=== PATIENT | female | born 1965 | race Caucasian/White ===

== ENCOUNTER → 2017-09-04 | Outpatient (CLI) | payer BC ==
--- NOTE | 2017-09-04 15:05 | MAMMOGRAPHY REPORT ---
BILATERAL DIGITAL DIAGNOSTIC MAMMOGRAM TOMOSYNTHESIS WITH CAD AND TARGETED RIGHT ULTRASOUND: 09/04/2017 CLINICAL HISTORY: 52-year-old woman presents with episodes of burning pain in the right breast radiat ing in the retroareolar plane. No palpable mass, skin changes or nipple discharge. Also due for robert ateral screening mammography. TECHNIQUE: Bilateral breast tomosynthesis in addition to standard 2D mammography was performed. Curre nt study was also evaluated with a Computer Aided Detection (CAD) system. COMPARISON: Comparison is made to exams dated: 01/14/2015 mammogram, 07/25/2013 mammogram, 10/06/2011 [facility], 08/12/2008, and 07/19/2007. BREAST COMPOSITION: The tissue of both breasts is heterogeneously dense, which may obscure small mas ses. FINDINGS: The glandular pattern is similar to prior mammograms. No obvious new masses, new suspiciou s calcifications, asymmetries or areas of architectural distortion are identified. Benign appearing lymph nodes project over each pectoralis muscle on the MLO views. No focal skin thickening appreciat ed. Targeted ultrasound was performed in the area of pain pointed out by the patient, in the periareolar and retroareolar right breast. Incidentally seen in the 2:00 periareolar right breast is a multilobu lated, partially circumscribed, parallel oriented solid appearing mass measuring approximately 10.4 x 5.2 x 10.2 mm. In retrospect, a possible lobulation is seen on cc tomosynthesis slice 27 in the med ial, middle one third of the right breast. When comparing this appearance to prior mammograms, it do es not appear significantly changed and appears somewhat similar to the 2012 exam, suggesting the tejas id mass could represent a benign fibroadenoma and is simply better visualized given the tomosynthesis imaging. Nevertheless given the solid nature, definitive characterization with an ultrasound guided core biopsy is recommended. Additional ultrasound throughout the remainder of the periareolar and retroareolar right breast demon strates no other suspicious solid or cystic mass. No focal skin thickening or drainable fluid collec tion. It is unclear if the mass identified in the 2:00 periareolar region is contributing to the abn ormal sensation/burning pain described by the patient. IMPRESSION: ACR BI-RADS CATEGORY 4: SUSPICIOUS, TARGETED ULTRASOUND ACR BI-RADS CATEGORY 4: SUSPICIO US 1. Ultrasound-guided core biopsy is recommended for a solid, multilobulated 10.4 mm mass in the 2:00 periareolar right breast. It is unclear if this is the cause of the patient's symptoms or possibly contributing to the patient's symptoms. Nevertheless, definitive characterization with tissue sampli ng is needed. 2. Otherwise stable mammographic appearance of the breasts, without definite mammographic evidence o f malignancy. Continued clinical follow-up is recommended for the patient's right breast pain. Mine ral supplements and NSAIDs are recommended. These results and recommendations were discussed with the patient at the time of the exam. She tenta tively scheduled the right breast biopsy prior to leaving our department. Approximately 10% of breast cancers are not detected with mammography. A negative mammographic report should not delay biopsy if a clinically suggestive mass is present. Paige Oglesby M.D. ay/:09/04/2017 11:03:49 Assistant Auto Center Manager: Fawn STEVEN(Esther)(Trish), [facility] letter sent: Abnormal 4/5 BI-RADS Code: ACR BI-RADS Category 4: Suspicious Ultrasound BI-RADS: ACR BI-RADS Category 4: Suspici ous
== END | disposition home or self-care (01) ==
LOC: C.MAMM 09:37
PROVIDERS: ATTEND Family Medicine
DX: N63.10 Unspecified lump in the right breast, unspecified quadrant (principal); N64.4 Mastodynia

== ENCOUNTER → 2017-09-12 | Outpatient (CLI) | payer BC ==
--- NOTE | 2017-09-12 09:31 | Discharge Instructions ---
Discharge Instructions Procedure Procedure Date: Sep 12, 2017. Reason for visit: Right Mass. Discharge Discharge Date: Sep 12, 2017. Discharge Diagnosis: post right breast ultrasound guided core biopsy Instructions Activity Recommendations: Additional Limitations (see below) Return to School/Work: no limitations Recommended Home Diet: No Limitations Provider Instructions: ACTIVITY RECOMMENDATIONS: * No lifting, pushing, pulling or exercising the affected side for three days. RETURN TO SCHOOL/WORK: * You may return to work/school after the procedure, but do not perform any strenuous activities for 24 to 48 hours. MEDICATIONS: * Tylenol (two 325 mg) every four to six hours if needed for mild pain (if not allergic to Tylenol). DIET: * Resume previous diet. SPECIAL CARE INSTRUCTIONS: * Keep biopsy site dry for 24 hours. May shower after 24 hours, but do not soak (bathe) incision. * May remove Tegaderm (plastic patch) tomorrow AFTER showering. * Leave the steri-strips on for one week. Allow the steri-strips to fall off by themselves. If not off after one week, you may remove them. You may place a Bandaid crosswise over the strips, if desired. * Apply ice 10 minutes on and 10 minutes off as needed. * Wear a bra at bedtime to sleep more comfortably for 2-3 days. * Your referring physician should have the results after approximately 5 to 7 business days. * Call for unusual bleeding, fever, drainage, etc or if you have any questions call [phone] during normal business hours or after hours call Dr Oglesby, . FOLLOW UP VISIT: Follow-up with Referring Physician as scheduled. Allergies Uncoded Allergies: N (Allergy, Unknown, 09/12/02) NKA (Allergy, Unknown, 09/12/02) Osmani Monroe Recommendations: Call your doctor if: * Temperature above 101 degrees * Pain not relieved by pain medicine ordered * There is increased drainage or redness from any incision * You have any unanswered questions or concerns. Your Doctors Instructions noted above were prepared by provider Paige Oglesby. Patient Signature Section: Patient Instructions Signature Page Mary Zarate Patient (or Guardian) Signature/Date: I have read and understand the instructions given to me by my caregivers. Caregiver/RN/Doctor Signature/Date: The above-named patient and/or guardian has received patient instructions on this date. + Original Patient Signature Page (only) stays with chart. Please make copy for patient.
--- NOTE | 2017-09-12 12:56 | MAMMOGRAPHY REPORT ---
UNILATERAL RIGHT DIGITAL DIAGNOSTIC MAMMOGRAM TOMOSYNTHESIS: 09/12/2017 CLINICAL HISTORY: Status post ultrasound guided core biopsy of a lobulated solid mass in the 2:00 per iareolar right breast. Please refer to the report from right breast ultrasound guided core biopsy performed at the same time for full detail. IMPRESSION: POST PROCEDURE IMAGING FOR MARKER PLACEMENT Please refer to the report from right breast ultrasound guided core biopsy performed at the same time for full detail. Approximately 10% of breast cancers are not detected with mammography. A negative mammographic report should not delay biopsy if a clinically suggestive mass is present. Paige Oglesby M.D. ay/:09/12/2017 09:30:04 Aircraft Cylinder Mechanic: Grace STEVEN(R)(M), [facility] BI-RADS Code: Post Procedure Imaging For Marker Placement
--- NOTE | 2017-09-12 12:56 | MAMMOGRAPHY REPORT ---
ULTRASOUND GUIDED BIOPSY RIGHT BREAST: 09/12/2017 CLINICAL HISTORY: Indeterminate lobulated 10.4 mm mass in the 2:00 periareolar right breast. Patient presents for ultrasound-guided core biopsy. She initially presented with an abnormal sensation in t he right breast and it is unclear if this could be the cause or was incidentally identified. COMPARISON: Comparison is made to exams dated: 09/04/2017 ultrasound, 09/04/2017 mammogram, 01/14/2015 ma mmogram, 07/25/2013 mammogram, 10/06/2011 mammogram - [facility], and 08/12/2008. PATIENT CONSENT: The procedure, risks and benefits were discussed with the patient and informed conse nt was obtained both verbally and in writing. Specific risks to this procedure include: bleeding, in fection, puncture of adjacent structure, nontarget biopsy, sampling error, pain, metal allergy and me dication reaction. PROCEDURE DESCRIPTION: A time out was performed and the right breast was agreed as the site of biopsy . The skin was prepped and draped in the usual sterile fashion. The solid lobulated 10.4 mm mass in t he 2:00 periareolar right breast was chosen as the target for biopsy. Subcutaneous and intraparenchym al 1% buffered lidocaine, with and without epinephrine, was administered as local anesthesia. A skin incision was made. Through the incision, 5 samples were taken with a 14 gauge Achieve biopsy device. A ribbon shaped metallic marker was placed at the biopsy site. Hemostasis was achieved after manual compression. The patient tolerated the procedure well and there was no immediate complication. The s amples were sent to the pathology department in an appropriately labeled container. Postprocedure right CC and ML tomosynthesis images were obtained. There is a new ribbon-shaped biops y marker clip in the 2:00 middle one third of the right breast, aligning with a partially circumscrib ed and obscured mammographic mass. Pending pathology results, continued clinical follow-up is recomm ended to assess if the patient remains symptomatic and if this biopsied mass could possibly be a caus e of her symptoms. IMPRESSION: ULTRASOUND GUIDED BIOPSY Status post ultrasound-guided core biopsy of an indeterminate solid lobulated 10.4 mm mass in the 2:0 0 right breast, with biopsy marker placed at the site. The patient will receive notification of the biopsy results from her referring physician. Paige Oglesby M.D. ay/:09/12/2017 12:27:40 Scheduling Coordinator: Grace JULES)(M), [facility]
== END | disposition home or self-care (01) ==
LOC: C.MAMM 08:26
PROVIDERS: ATTEND Family Medicine
DX: N63.10 Unspecified lump in the right breast, unspecified quadrant (principal); D24.1 Benign neoplasm of right breast

== ENCOUNTER 2018-03-04 18:33 | Emergency (ER) | payer BC ==
[~2018-03-04] VITALS: Ht 162.6 cm; Wt 76.9 kg
[2018-03-04 18:36] VITALS: TEMP 36.8; Ht 162.6 cm; Wt 76.9 kg
[2018-03-04] MEDS ORDERED: [UNRECOGNIZED DRUG - OTHER] PO ×2 (18:44)
[2018-03-04] MEDS ORDERED: DICL50TA3 PO (18:44)
[2018-03-04] MEDS ORDERED: IBUP-1050 PO (18:46)
[2018-03-04] MEDS ORDERED: KETOROLAC TROMETHAMINE 60 MG/2 ML VIAL IM STA (18:48)
[2018-03-04] MEDS ORDERED: CYCLOBENZAPRINE HCL 10 MG TAB PO STA (18:48)
[2018-03-04] MEDS ORDERED: HYDROCODONE/ACETAMIN 5/325MG TAB PO STA (18:48)
[2018-03-04] MEDS ORDERED: CYCL10TA6 PO (18:56)
[2018-03-04] MEDS ORDERED: HYDR-5688 PO (18:56)
[2018-03-04] MEDS ORDERED: FLEXERIL HOME PACK 10 MG VIAL PO ONE (19:00)
[2018-03-04] MEDS ORDERED: NORCO 5/325MG HOME PACK PO ONE (19:00)
--- NOTE | 2018-03-04 19:43 | EMERGENCY ROOM VISIT NOTE ---
ED Visit Note First contact with patient: 18:39 CHIEF COMPLAINT: Low back pain HISTORY OF PRESENT ILLNESS: This 52-year-old female presents to ER with chief complaint of low back pain. 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 Since that time she is constant pain in the lower back which she describes as aching and spasms. She states she is unable to stand up straight due to the pain. She states she cannot twist her back. She took ibuprofen 400 mg without any relief of the pain. The patient denies any history of chronic back pain or back surgery. The patient denies any pain radiating down her legs or any numbness and tingling. The patient denies a loss of bowel or bladder control or any saddle anesthesia. REVIEW OF SYSTEMS: 6 system review was performed and was negative unless stated otherwise in history of present illness. PMH: The patient is healthy; partial thyroidectomy, right shoulder surgery, tubal ligation SOCIAL HISTORY: Patient lives with her . The patient denies any tobacco or alcohol use. PHYSICAL EXAM: Vital Signs were reviewed: Reviewed Nurse's notes and agree. GENERAL: 52-year-old white female appears in no acute distress. MENTAL STATUS: Alert and oriented 3 LUMBAR SPINE: No gross bony abnormality noted. Patient is nontender to palpation over the spinous processes. She is tender to palpation over the paravertebral regions bilaterally with palpable muscle spasms bilaterally. L Muscle strength is 5 out of 5 bilateral lower extremities and symmetrical. NEURO: Patient is able to heel and toe walk without difficulty. I lateral patellar and Achilles reflexes are 2+. Sensation is intact to pinprick bilateral lower extremities. Negative straight leg raise bilaterally. EMERGENCY DEPARTMENT COURSE: The patient was evaluated. The patient was given Toradol 60 mg IM, Flexeril 10 mg p.o. and [place] 5/325 mg 2 tablets p.o. for pain. The patient was reevaluated was feeling much better. The patient was given a [place] and Flexeril home pack to take as directed. The patient was discharged home in stable condition with her driving. DIAGNOSIS: Lumbar strain DISCHARGE INSTRUCTIONS AND TREATMENT: Ibuprofen 600 mg every 6 hours with food for pain. Take [place] as needed for pain. Do not drive while taking the [place]. Take Flexeril as prescribed. Do not drive while taking the Flexeril. Avoid staying in any one position for an extended period of time. If symptoms persist or worsen, follow up with your family doctor for referral for additional testing. Current/Historical Medications Scheduled Cyclobenzaprine Hcl (Flexeril), 10 MG PO TID [Modere], 2 TABS PO QAM [Modere], 1 TAB PO QPM Scheduled PRN Diclofenac (Voltaren), 50 MG PO BID PRN for Pain Hydrocodone/Acetaminophen 5MG/325MG ([place] 5MG/325MG), 1-2 TABLET PO Q6 PRN for Pain Ibuprofen (Advil), 400 MG PO Q6 PRN for Pain Allergies Coded Allergies: No Known Allergies (Unverified , 03/04/18) Vital Signs Date Time Temp Pulse Resp B/P (MAP) Pulse Ox O2 Delivery O2 Flow Rate FiO2 03/04/18 18:36 36.8 72 20 109/70 100 Room Air Medications Administered Medications (Trade) Dose Ordered Sig/Elisabet Route Start Time Stop Time Status Last Admin Dose Admin Ketorolac Tromethamine (Toradol Inj) 60 mg NOW STAT IM 03/04/18 18:48 03/04/18 18:50 DC 03/04/18 19:12 60 MG Cyclobenzaprine HCl (Flexeril Tab) 10 mg NOW STAT PO 03/04/18 18:48 03/04/18 18:50 DC 03/04/18 19:12 10 MG Acetaminophen/ Hydrocodone Bitart ([place] 5/325 Tab) 2 tab NOW STAT PO 03/04/18 18:48 03/04/18 18:50 DC 03/04/18 19:12 2 TAB Departure Information Prescriptions Hydrocodone/Acetaminophen 5MG/325MG ([place] 5MG/325MG) Tab 1-2 TABLET PO Q6 Y for Pain, #20 TAB For Initial Treatment Prov: Vivian Rich PA-C 03/04/18 Cyclobenzaprine Hcl (FLEXERIL) 10 Mg Tab 10 MG PO TID for 7 Days, #21 TAB Prov: Vivian Rich PA-C 03/04/18 Referrals Antonietta Aguirre A. P.Charles (PCP) Patient Instructions My [facility] [address]
[2018-03-04 20:33] VITALS: BP 104/55; PULSE 65; O2SAT 97
== END 2018-03-04 20:39 | disposition home or self-care (01) ==
LOC: C.EDB 18:34 → C.EDD 20:39
DX: M62.830 Muscle spasm of back (principal); X50.0XXA Overexertion from strenuous movement or load, initial encounter